=== PATIENT | female | born 1955 | race Caucasian/White ===

== ENCOUNTER 2020-07-31 14:45 | Emergency (ER) | payer OTHER ==
[2020-07-31 14:57] VITALS: BP 150/85; PULSE 77; TEMP 98; BMI 22.4
[2020-07-31] MEDS ORDERED: KETOROLAC TROMETHAMINE 60 MG/2 ML VIAL IM ONE (15:34)
[2020-07-31] MEDS ORDERED: LIDOCAINE 5% TOPICAL PATCH TP ONE (15:34)
[2020-07-31] MEDS ORDERED: KETOROLAC TROMETHAMINE 30 MG/1 ML VIAL ONE (16:08)
[2020-07-31] MEDS ORDERED: LIDOCAINE 5% TOPICAL PATCH ONE (16:08)
== END 2020-07-31 16:31 | disposition home or self-care (01) ==
LOC: JER 14:45 → JERFT 14:45
PROC: 3E0233Z Introduction of Anti-inflammatory into Muscle, Percutaneous Approach (ICD-10-PCS; principal; 2020-07-31)
DX: S13.4XXA Sprain of ligaments of cervical spine, initial encounter (principal)
CPT/HCPCS: 72040-TC; 72070-TC-FY; 99284-25

== ENCOUNTER 2023-10-03 04:20 | Day surgery (SDC) | payer OTHER ==
[2023-09-28 12:46] VITALS: BMI 23.3
[~2023-10-03 04:20] MED LIST: ACETAMINOPHEN 325 MG TABLET (FP) PO PRN
[2023-10-03] MEDS ORDERED: TETRACAINE 0.5% OPHTH SOLN 2 ML BOTTLE ONE (07:17)
[2023-10-03] MEDS ORDERED: LIDOCAINE HCL/PF 1% SDV 5ML VIAL ONE (07:17)
[2023-10-03] MEDS ORDERED: POVIDONE-IODINE 5% OPHTHALMIC PREP 30 ML SOLUTION ONE (07:17)
[2023-10-03] MEDS ORDERED: TROPICAMIDE 1% OPHTH SOLN 15 ML BOTTLE ONE (08:21)
[2023-10-03] MEDS ORDERED: OFLOXACIN 0.3% OPHTHALMIC SOLUTION 5 ML BOTTLE ONE (08:21)
[2023-10-03] MEDS ORDERED: PHENYLEPHRINE 2.5% OPTHALMIC DROP 2ML BOTTLE ONE (08:21)
[2023-10-03] MEDS ORDERED: KETOROLAC TROMETHAMINE 0.5% EYE DROP 1 DROP DROPS ONE (08:21)
[2023-10-03 08:30] VITALS: RESP 20
[2023-10-03] MEDS: KETOROLAC TROMETHAMINE 0.5% EYE DROP 1 DROP DROPS OP SCH (08:35)
[2023-10-03] MEDS: CYCLOPENTOLATE HCL 1% OPHTH SOLN 2 ML BOTTLE OP SCH (08:35)
[2023-10-03] MEDS: TROPICAMIDE 1% OPHTH SOLN 15 ML BOTTLE OP SCH (08:35)
[2023-10-03] MEDS: PHENYLEPHRINE 2.5% OPHTH SOLN 15 ML BOTTLE OP SCH (08:35)
[2023-10-03] MEDS: OFLOXACIN 0.3% OPHTHALMIC SOLUTION 5 ML BOTTLE OP SCH (08:35)
[2023-10-03] MEDS: CYCLOPENTOLATE 2% OPHTH SOLN 2 ML BOTTLE OP ONE ×3 (08:35→08:45)
[2023-10-03] MEDS ORDERED: MIDAZOLAM HCL 2 MG/2 ML SINGLE DOSE VIAL ONE (09:17)
[2023-10-03] MEDS ORDERED: TRYPAN BLUE 0.5 ML DISP.SYRIN ONE (09:56)
[2023-10-03] MEDS: TETRACAINE 0.5% OPHTH SOLN 2 ML BOTTLE TP ONE ×2 (10:13)
[2023-10-03] MEDS: POVIDONE-IODINE 5% OPHTHALMIC PREP 30 ML SOLUTION OS ONE ×2 (10:15)
[2023-10-03] MEDS: BSS (NA/CA/MG/K) BALANCED SALT SOLUTION OPHTH SOLN 15 ML BOTTLE OS ONE ×2 (10:21)
[2023-10-03] MEDS: CHONDROITIN SU A/HYALUR SOD 1 KIT IO ONE ×2 (10:22)
[2023-10-03] MEDS: LIDOCAINE HCL 1% PRESERVATIVE FREE - 30ML VIAL IO ONE ×2 (10:22)
[2023-10-03] MEDS: TRYPAN BLUE 0.5 ML DISP.SYRIN IO ONE (10:22)
[2023-10-03] MEDS: EPINEPHrine/PF 1 MG/1 ML (1:1,000) AMPULE SQ ONE ×2 (10:31)
[2023-10-03 12:39] VITALS: BP 141/60; PULSE 75; TEMP 97.3
== END 2023-10-03 12:45 | disposition home or self-care (01) ==
LOC: JASU-SURG 04:20
PROVIDERS: ATTEND Ophthalmology
PROC: 08RK3JZ Replacement of Left Lens with Synthetic Substitute, Percutaneous Approach (ICD-10-PCS; principal; 2023-10-03 10:00)
DX: H26.9 Unspecified cataract (principal)
CPT/HCPCS: V2632